=== PATIENT | female | born 2000 | race Caucasian/White ===

== ENCOUNTER 2024-04-17 21:16 | Emergency (ER) | payer OTHER, SELFPAY ==
--- NOTE | ~2024-04-17 | XR_ITS ---
EXAMINATION: XR hand LT min 3V DATE: 04/17/2024 21:45 INDICATION: Sports injury to the left fifth digit TECHNIQUE: Posteroanterior, oblique and lateral views of the left hand were obtained. COMPARISON: None. FINDINGS: Nondisplaced oblique fracture of the left fifth middle phalanx which appears to extend to involve the proximal articular surface without significant fracture gap or incongruity. Alignment remains essent ially anatomic. No other fractures identified. Joint spaces are normal. IMPRESSION: 1. Nondisplaced likely intra-articular fracture of the left fifth middle phalanx. Reviewed, dictated and finalized at location A. IMPRESSION: 1. Nondisplaced likely intra-articular fracture of the left fifth middle phalan x.
[2024-04-17 22:19] VITALS: BP 124/66; PULSE 81; RESP 18; TEMP 36.4; O2SAT 99
--- NOTE | 2024-04-18 01:34 | ED.UPPEXIN ---
HPI - Extremity Injury (Upper) General Chief Complaint: Extremity Injury, Upper Stated Complaint: finger injury Time Seen by Provider: 04/18/24 01:33 Source: patient Mode of arrival: ambulatory Limitations: no limitations History of Present Illness HPI narrative: Patient is a 23-year-old female who presents the ED with report of left 5th digit pain. Patient reports she was playing kick ball [employer] and jammed her L 5th finger while trying to catch the ball. She states initially her finger appeared to be deformed to the side. Reports pain, denies numbness. Denies any other injuries. Related Data Allergies Allergy/AdvReac Type Severity Reaction Status Date / Time Animal Dander Allergy Severe Hives / Uncoded 04/17/24 22:28 Red Face Review of Systems Review of Systems: CONSTITUTIONAL: Denies fever, chills, or sweats. MUSCULOSKELETAL: See HPI NEUROLOGIC: Denies headache, dizziness, numbness, or weakness. All systems reviewed & are unremarkable except as noted in HPI and below Exam Narrative: GENERAL: Well appearing, obese with BMI of 31.0, non-toxic, in no acute distress. HEAD: Normocephalic, atraumatic. RESPIRATORY: Airway patent, respirations nonlabored. CARDIOVASCULAR: Regular rate and rhythm. Radial pulses strong and easily palpable. MUSCULOSKELETAL: Moves all extremities. Limited range of motion left digit due to pain. Mild tenderness over middle phalange of L 5th digit with minimal swelling, mild ecchymosis deformity. Sensation intact. Capillary refill intact. SKIN: Warm, dry, normal color. NEURO: A&O X3. Speech clear. PSYCHIATRIC: Appropriate mood and affect. Normal interaction. Course Vital Signs Vital signs: Vital Signs Temperature 97.5 F L 04/17/24 22:19 Pulse Rate 81 04/17/24 22:19 Respiratory Rate 18 04/17/24 22:19 Blood Pressure 124/66 04/17/24 22:19 Pulse Oximetry 99 04/17/24 22:19 Oxygen Delivery Room Air 04/17/24 22:19 Temperature 97.5 F L 04/17/24 22:19 Pulse Rate 80 04/18/24 01:48 Respiratory Rate 18 04/18/24 01:48 Blood Pressure 125/86 04/18/24 01:48 Pulse Oximetry 98 04/18/24 01:48 Oxygen Delivery Room Air 04/17/24 22:19 MDM - Extremity Injury (Upper) MDM Narrative Medical decision making narrative: Patient?s injury is consistent with musculoskeletal etiology. No signs of neurologic or vascular compromise on physical examination. Compartments are soft without signs of compartment syndrome. XR showing nondisplaced fracture of middle phalanx. Pain is consistent with exam and injury. Patient is felt to be stable for discharge home and further outpatient management and treatment. Placed in metal finger splint. Will be referred to Hand surgery for further evaluation. Given ibuprofen in the ED. Offered to prescribe [place] for home, however patient politely declined. Given return precautions. Discharged in stable condition. Medical Records Attestation: I reviewed the patient's medical records. Imaging Data Attestation: I personally reviewed and interpreted this imaging study as follows: Radiologist's impression: ITS Impressions Hand X-Ray 04/17/24 21:46 IMPRESSION: 1. Nondisplaced likely intra-articular fracture of the left fifth middle phalanx. Discharge Plan Discharge Clinical Impression: Fracture of middle phalanx of finger of left hand Patient Disposition: Home, Self-Care Condition: Stable Instructions: Antibiotic Form, Jammed Finger (ED), Finger Fracture (ED) Additional Instructions: Recommend Tylenol/ibuprofen as needed for pain. You can take 600 mg of ibuprofen and 1000 mg of Tylenol/acetaminophen every 6 hours. Wear splint at all times until seen by Hand surgery. Call office to make appointment. Return to the ED if you experience worsening or severe pain or swelling, recurrent injury, numbness, or any other symptoms of concern. Follow-up/Referrals: Chela Cui MD [Physician] - ([facility]
[2024-04-18 01:48] VITALS: BP 125/86; PULSE 80; RESP 18; O2SAT 98
--- NOTE | 2024-04-18 01:53 | PC.NURSE ---
per vorb patient to receive 600mg of ibuprofen for pain control. this rn used closed loop communication to confirm rate/ dose/ route/ medication/ patient. jerrica campbell verbalized confirmation.
[2024-04-18] MEDS: IBUPROFEN 600 MG TABLET PO (02:03)
== END 2024-04-18 02:11 | disposition home or self-care (01) ==
PROVIDERS: Emergency Provider Physician Assistant; PCP Pediatrics
DX: S62.657A Nondisplaced fracture of middle phalanx of left little finger, initial encounter for closed fracture (principal); W21.09XA Struck by other hit or thrown ball, initial encounter; Y93.6A Activity, physical games generally associated with school recess, summer camp and children
CPT/HCPCS: 29130; 73130; 99284; A9270